=== PATIENT | female | born 1965 ===

== ENCOUNTER → 2020-12-11 | Outpatient (CLI) | payer OTHER ==
[~2020-12-11] VITALS: Ht 170.2 cm; Wt 63.5 kg
[~2020-12-11] MED LIST: MELOXICAM15 MG PO; NABUMETONE 500500 M2 PO; PROGESTERONE PO
--- NOTE | ~2020-12-11 | HPC ---
[facility] [place] [address] PAIN MANAGEMENT CONSULTATION Name: NITZA DAS Room #: REG YARI Mcnally#: [id number] Admission: 12/11/20 Attend Phys: Juan Faulkner DO Discharge: Date of : 63 Report #: [id number] THIS REPORT FOR: cc: DONAVON DONNELLY Physician not on staff Juan Faulkner DO ~ cc: Blayne Landon DPM DATE OF SERVICE: 12/11/2020 CHIEF COMPLAINT: Bilateral foot pain. HISTORY OF PRESENT ILLNESS: As you know, the patient is a 55-year-old female reporting longstanding history of bilateral foot pain beginning in 2002. The patient has undergone treatment with Dr. Landon for bilateral foot pain and bilateral heel pain. She has undergone surgery to address these issues, but has noted no pain improvement. Recent imaging dated 09/02/2020 shows full thickness disruption of the plantar fascia consistent with the plantar fascial release procedure in 03/2020. There still appears to be some changes in the area and reactive bone marrow edema consistent with calcaneal injury. She has been continuing to experience ongoing pain that has not been able to be controlled by Podiatry. The patient was referred to our clinic to discuss whether or not treatment options might be available. She places pain anywhere from 8-10/10 depending on activity. The patient reports the pain is continuous, steady and constant, describes the pain more as a shooting, aching, cramping, throbbing, pounding and tender when describing symptoms. She places current pain score at 8/10, daily average at 8-10/10, worst pain has been is 10/10. The patient states the pain is exacerbated with weightbearing and walking, improves with "not being on her feet." She has been referred to our service to discuss whether or not, treatment options are available to address bilateral foot pain due to calcaneal injuries. PAST MEDICAL HISTORY: 1. Bilateral foot pain. 2. Endocrine abnormality. PAST SURGICAL HISTORY: section x2, plantar fascia release. SOCIAL HISTORY: The patient denies tobacco use. Denies IV or illicit drug use. Admits to 2-3 alcoholic beverages per week. 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 She is not receiving workmen's compensation nor is she trying to obtain disability benefits. Not in litigation in regards to pain. She is unaccompanied at today's visit. REVIEW OF SYSTEMS: Positive only for bleeding, bruising tendencies, bilateral [address] [address] PAIN MANAGEMENT CONSULTATION Name: NITZA DAS Room #: REG [facility]du[facility].#: [id number] Admission: 12/11/20 Attend Phys: Juan Faulkner DO Discharge: Date of : 63 Report #: [id number] foot pain. All other review of systems negative per 12-point review of systems other than those listed in history of present illness. Pain impact score 41 of 70, moderate to severe interference of daily activities secondary to pain. ALLERGIES: No known drug allergies. CURRENT MEDICATIONS: Meloxicam 15 mg once a day, progesterone 100 mg once a day. IMAGING: MRI of the right foot shows full thickness disruption of the plantar fascia consistent with plantar release from 03/2019. There is thickening of the proximal central cord of the plantar fascia with moderate to low grade interstitial tearing of the calcaneal attachment. This is associated with bone marrow edema throughout the calcaneus attachment. PHYSICAL EXAMINATION: VITAL SIGNS: Blood pressure 136/86, pulse is 60, respiratory rate 14 and unlabored. The patient is 98% on room air. Height 5 feet 7 inches tall, weight 140 pounds, BMI calculated 21.9. GENERAL: Well-developed, well-nourished, well-hydrated 55-year-old female appearing stated age, placing current pain score around 7/10. HEENT: Normocephalic, atraumatic. Pupils equal, round and responsive. She is wearing a mask in compliance with COVID-19 regulations. LUNGS: Appear clear. No wheezing, rhonchi or rales. She is able to complete sentences without difficulty. CARDIOVASCULAR: Regular. ABDOMEN: Soft, nontender. EXTREMITIES: Show no clubbing, no cyanosis, no edema. MUSCULOSKELETAL: There is palpatory tenderness over the calcaneus, right greater than left. Deep pressure in the area causes intensification of pain. Weightbearing also causes intensification of bilateral calcaneal pain, right greater than left. Gait is antalgic favoring right lower extremity over left. Muscle bulk and tone is symmetrical in lower extremities. Seated straight leg raising negative. Supine straight leg raising negative. Jazmine's test is negative. Modified Gaenslen's negative. ASSESSMENT: 1. Bilateral foot pain. 2. Bilateral chronic calcaneal marrow edema. 3. Chronic intractable pain. PLAN: 1. Based on today's physical exam and history the patient has provided, the description the patient uses in regards to pain as well as location of symptoms, [address] [address] PAIN MANAGEMENT CONSULTATION Name: NITZA DAS Room #: REG YARI Mcnally#: [id number] Admission: 12/11/20 Attend Phys: Juan Faulkner, DO Discharge: Date of : 63 Report #: [id number] it would appear her symptoms are related more to chronic calcaneal contusions versus any specific and concerning pathology. MRI does show some changes consistent with plantar fascial release, but even though that has been completed, she continues to show bone marrow changes in the calcaneus consistent with chronic contusion/injury. We have discussed with the patient the options we have for treatment, these are options provided through Podiatry. Specifically, we could certainly make adjustments in medications to help with symptoms, though long-term benefit with any interventional treatment is nonexistent. We discussed with the patient today. The patient is agreeable to make adjustments in medication management and discuss further. 2. We recommend discontinuation of meloxicam. This is an excellent maintenance medication, but will not provide good analgesic benefit acutely. We will rotate to nabumetone 500 mg 3 times a day. I have given the patient #90 tablets with 2 refills to take as needed. If she is able to maintain analgesic benefit with two a day, she can reduce to twice a day or even one a day if her symptoms do improve. A prescription was sent via e-scribe to local pharmacy with 2 refills, 3 months' worth of medication. 3. The patient and I discussed at length that the only option from a treatment standpoint is to offload weightbearing, though this would be quite difficult. Orthotics could be provided. These would have to be extremely soft and malleable to be able to cushion the calcaneus while the patient is weightbearing and ambulating. We have recommended very specific shoe types to the patient today that might be beneficial. I have requested the patient follow up with Dr. Landon in regards to obtaining orthotics that provide good stabilization of the foot, but also provide excellent padding for the calcaneus. 4. There are no interventional treatments that we can provide that will provide long-term benefit for the patient. Injections in the area of steroid can provide some improvement in symptoms, but this will be only transient in nature. The continued pressure upon and micro injuries to the calcaneus will continue. She will need to do her best to pad her feet appropriately and to make sure that she does not ambulate in bare feet or in hard sole shoes. This will reduce the stress on the calcaneus. 5. We have recommended that if the patient wishes to look towards orthopedic evaluation. There is some concern that the continual injury to the calcaneus is causing micro fracturing that may be the source of the symptoms. There is a possibility that further imaging of the area may be necessary and possible consultation with orthopedic foot surgeon. I will defer to Dr. Landon if he wishes to make those referrals though I am confident Dr. Landon can address these issues in his office. 6. We wish to thank Dr. Landon for the referral of the patient to our clinic. We plan to see her back in followup visit to discuss the efficacy of the adjustments made here today and whether or not further adjustments will be necessary. I am hopeful the patient will see benefit with the medication changes and the suggestions of padding of the calcaneus treating this more as a [address] [address] PAIN MANAGEMENT CONSULTATION Name: NITZA DAS Room #: REG CLHoward Uli#: [id number] Admission: 12/11/20 Attend Phys: Juan Faulkner DO Discharge: Date of : 63 Report #: [id number] chronic bone injury problem than plantar fascia. Again, we wish to thank you for the opportunity to see the patient in consultation. By: [id number] Juan Faulkner DO /mikayla
[2020-12-11 08:13] VITALS: BP 136/86
--- NOTE | 2020-12-11 08:30 | NUR ---
Pain Clinic Assessment: 1. History of Osteoarthritis: Not Applicable History of Rheumatoid Arthritis: Not Applicable 2. Height: 5 ft. 7 in. 170.2 cm. Weight: 140.0 lb. oz. 63.504 kg. Patient's BMI: 21.9 3. Vital Signs: BP: 136/86 Pulse: 60 Resp: 14 Temp: 02 Sat: 98 ECG Mon: 4. Pain Intensity: 7 5. Fall Risk: Dizziness: N Needs help standing or walking: N Fallen in the last 3 months: N Fall risk comments: 6. Patient on Blood Thinner: None 7. History of Hypertension: N 8. Opioid Therapy greater than 6 weeks: Opiate Contract Signed: 9. Risk Assessment Tool Provided: 0 LOW RISK 10. Functional Assessment Tool: 11. Recreational Drug Use: Never Drug Type: Tobacco Use: Light Tobacco Smoker Tobacco Type: Amount or Packs/day: How Many Years: Alcohol Use: Yes Frequency: Weekly Quant: 2
== END ==
LOC: PAIN 07:57
PROVIDERS: ATTEND Anesthesiology Pain Medicine
DX: G89.29 Other chronic pain (principal); M79.672 Pain in left foot; M79.671 Pain in right foot; R60.1 Generalized edema

== ENCOUNTER → 2021-01-01 | Outpatient (CLI) | payer OTHER ==
[~2021-01-01] VITALS: Ht 170.2 cm; Wt 65.4 kg
[~2021-01-01] MED LIST changes: +NUCYNTA50 MG PO
--- NOTE | ~2021-01-01 | HPC ---
[facility] [address] [place] [address] PAIN MANAGEMENT CONSULTATION Name: NITZA DAS Room #: REG YARI Mcnally#: [id number] Admission: 01/01/21 Attend Phys: Juan Faulkner DO Discharge: Date of : 63 Report #: [id number] THIS REPORT FOR: cc: DONAVON DONNELLY Physician not on staff Juan Faulkner DO ~ cc: Blayne Landon DPM DATE OF SERVICE: 01/01/2021 REFERRING PHYSICIAN: Dr. Blayne Landon CHIEF COMPLAINT: Bilateral foot pain. HISTORY OF PRESENT ILLNESS: As you know, the patient is a very pleasant 55-year-old female with longstanding history of bilateral foot pain beginning in 2002. She has undergone treatment with Dr. Landon for bilateral foot pain and bilateral heel pain. She has undergone surgery to release the plantar fascia, though symptoms did not improve. She continues to experience pain that appears to be related to a chronic irritation of the calcaneus secondary to possible longstanding contusions or other sources of symptoms undiagnosed. The patient was sent on to our clinic to discuss treatment options. We trialled conservative treatment with nonsteroidal anti-inflammatories and adjustments in her daily lifestyle and footwear. Unfortunately, this did not improve the symptoms significantly. She returns today in followup visit to discuss adjustments in medication management in hopes of improving symptoms. The patient has had opioid medication in the past such as hydrocodone and oxycodone and did not tolerate the side effects. The patient reports side effects of sleepiness, disorientation, confusion and nausea that was consistent while on the medication. Once the medication was discontinued, she improved. She has trialled multiple nonsteroidal anti-inflammatories. She has undergone injections into the area of steroids as well as taking oral steroids without benefit. She returns to discuss adjustments in medication management today. ALLERGIES: No known drug allergies. CURRENT MEDICATIONS: Progesterone 100 mg once a day, nabumetone 500 mg 3 times a day. SOCIAL HISTORY: The patient denies tobacco use. Denies IV or illicit drug use. Admits to approximately 2-3 alcoholic beverages per week. 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 She is unaccompanied today. IMAGING: No new imaging available. PHYSICAL EXAMINATION: [facility] [address] [place] [address] PAIN MANAGEMENT CONSULTATION Name: NITZA DAS Room #: REG YARI Uli#: [id number] Admission: 01/01/21 Attend Phys: Juan Faulkner DO Discharge: Date of : 63 Report #: [id number] VITAL SIGNS: Blood pressure 112/89, pulse 61, respiratory rate 14 and unlabored. The patient is 98% on room air. Height 5 feet 7 inches tall, weight 144.2 pounds, BMI calculated 22.6. GENERAL: Well-developed, well-nourished, well-hydrated 55-year-old female appearing stated age, pain is rated today around 9/10. HEENT: Normocephalic, atraumatic. Pupils equal, round and responsive. She is wearing a mask in compliance with COVID-19 regulations. EXTREMITIES: Show no clubbing, no cyanosis. No appreciable edema. MUSCULOSKELETAL: Palpatory tenderness is once again noted over the distal portion of the calcaneus, right greater than left. Pressure over the area causes intensification of pain. There is no ecchymosis, no changes in skin color or texture over the area. Gait is antalgic favoring right lower extremity greater than left. Straight leg raising both in the seated and supine position negative. Lumbar provocation testing does cause some axial back pain, no radiation of symptoms. ASSESSMENT: 1. Bilateral foot pain. 2. Bilateral chronic calcaneal marrow edema. 3. Chronic intractable pain. PLAN: 1. The patient returns today in followup visit having trialed conservative treatment and adjustments in footwear and activity. Unfortunately, this did not cause significant changes in pain. She and I had discussed at the initial visit that medication management might be necessary. I do feel that given the fact that she has trialled all [id number] medications, she has tried meloxicam and nabumetone and noted no improvement and nonsteroidal anti-inflammatories will not be beneficial. She has tried intraarticular injection steroid with Dr. Landon without improvement. She has also trialled oral steroids and again with no improvement. We had discussed at previous the evaluation, medication management. She wishes to look towards this today. 2. The patient states that she has had a pain medication in the past. She has had tramadol, hydrocodone and oxycodone, all of which caused the patient significant dysphoric effects such as sleepiness, disorientation, confusion, sleepiness that was throughout the day and ongoing nausea. There was some constipation as well. We had discussed this with the patient today. I would recommend a trial of one of the newer of the opioid like medications and is Nucynta. This will provide the patient not only with nociceptive pain relief through the MU receptor activity, but also has a norepinephrine reuptake inhibition, which will be beneficial for any neuropathically generated pain. The patient is agreeable to start the medication. We have had great success with this medication with other individuals with bilateral foot pain due to similar conditions. The patient is agreeable to start the medication. We recommend a short dosing of the medication initially. If she can tolerate the medication and notes analgesic benefit, we would then look towards full [facility] [address] [place] [address] PAIN MANAGEMENT CONSULTATION Name: NITZA DAS Room #: REG YARI KayeShane#: [id number] Admission: 01/01/21 Attend Phys: Juan Faulkner DO Discharge: Date of : 63 Report #: [id number] prescription. The patient is agreeable. 3. The patient was provided prescription of Nucynta 50 mg dose. She is to take one-half tab to one tab up to 3 times a day for pain control. She was given #30 tablets as a trial. This is a 1-week prescription. The patient was advised to utilize medication as directed. She is to watch for any side effects with its use. If she notes any side effects, contact our clinic. 4. See the patient back in followup visit in approximately 30 days. I did advise the patient if the medication is beneficial and she is noticing no side effects and good analgesic benefit, we would provide her a full prescription for the remainder of the month and we will then see her back in 1 month to continue the therapy if it is continuing to show analgesic benefit. By: [id number] Juan Faulkner DO /nt
[2021-01-01 09:26] VITALS: BP 112/89
--- NOTE | 2021-01-01 09:37 | NUR ---
Pain Clinic Assessment: 1. History of Osteoarthritis: Not Applicable History of Rheumatoid Arthritis: Not Applicable 2. Height: 5 ft. 7 in. 170.2 cm. Weight: 144.2 lb. oz. 65.409 kg. Patient's BMI: 22.6 3. Vital Signs: BP: 112/89 Pulse: 61 Resp: 14 Temp: 02 Sat: 98 ECG Mon: 4. Pain Intensity: 9 5. Fall Risk: Dizziness: N Needs help standing or walking: N Fallen in the last 3 months: N Fall risk comments: 6. Patient on Blood Thinner: None 7. History of Hypertension: N 8. Opioid Therapy greater than 6 weeks: Opiate Contract Signed: 9. Risk Assessment Tool Provided: 0 LOW RISK 10. Functional Assessment Tool: 11. Recreational Drug Use: Never Drug Type: Tobacco Use: Never Smoker Tobacco Type: Amount or Packs/day: How Many Years: Alcohol Use: Yes Frequency: Monthly Quant: 1
== END ==
LOC: PAIN 06:53
PROVIDERS: ATTEND Anesthesiology Pain Medicine
DX: G89.29 Other chronic pain (principal); M79.671 Pain in right foot; M79.672 Pain in left foot; R60.9 Edema, unspecified